=== PATIENT | male | born 1990 | race Caucasian/White ===

== ENCOUNTER 2016-12-16 01:18 | Emergency (ER) | payer SELFPAY ==
[2016-12-16] MEDS ORDERED: Adacel (T-DAP) 0.5 ML VIAL ONE (01:23)
[2016-12-16 01:42] LABS: #Basophils 0.1 thou/uL (0.0-0.2); #Eosinphils 0.1 thou/uL (0.0-0.7); #Lymphocytes 2.7 thou/uL (1.20-3.40); #Monocytes 0.5 thou/uL (0.11-0.59); #Neutrophils 4.3 thou/uL (1.40-6.50); %Basophils 1.1 % (0.0-1.0); %Lymphocytes 35.1 % (21.0-51.0); %Monocytes 6.4 % (0.0-10.0); %Neutrophils 56.4 % (42.0-75.0); Hemoglobin 14.7 g/dL (14.0-18.0); Mean Corpuscular HGB CONC 35.4 g/dL (32.0-36.0); Mean Corpuscular Hemoglobin 31.3 pg (27.0-31.0); Mean Corpuscular Volume 88.3 fl (80.0-94.0); Mean Platelet Volume 8.5 fL (7.4-10.4); Platelet Count 164 thou/uL (130-400); RBC Distribution Width 11.6 % (11.5-14.5); Red Blood Cell (RBC) Count 4.71 mill/uL (4.70-6.10); White Blood Cell (WBC) Count 7.7 thou/uL (4.8-10.8)
[2016-12-16 01:57] LABS: ALT (SGPT) 29 U/L (8-55); AST (SGOT) 31 U/L (5-34); Albumin 4.6 g/dL (3.5-5.0); Alkaline Phosphatase 58 U/L (40-150); Anion Gap 18 mmol/L (10-20); BUN (Urea Nitrogen) 10 mg/dL (8.9-20.6); Bilirubin, Total 0.8 mg/dL (0.2-1.2); Calc. Creatinine Clearance 0 mL/min (70-130); Calcium 9.1 mg/dL (7.8-10.44); Carbon Dioxide 20 mmol/L (22-29); Chloride 109 mmol/L (98-107); Estimated GFR-MDRD 90; Glucose 106 mg/dL (70-105); Potassium 3.6 mmol/L (3.5-5.1); Protein, Total 7.6 g/dL (6.0-8.3); Sodium 143 mmol/L (136-145)
--- NOTE | 2016-12-16 07:46 | RAD ---
LEFT HUMERUS 2 VIEWS: DATE: 12/16/16. Two views show no fracture or opaque foreign body. IMPRESSION: No acute findings POS: HOME
--- NOTE | 2016-12-16 07:47 | RAD ---
CHEST 2 VIEWS: DATE: 12/16/16. FINDINGS: The heart is normal in size. The mediastinum shows no widening or shift. There is some slight curv ature to the thoracolumbar spine convex right. The lungs are clear and fully inflated. There is no sign of pneumothorax, effusion, or focal pulmonary infiltrate. No opaque foreign bodies were seen. The lungs may be marginally hyperexpanded. IMPRESSION: No acute thoracic finding. POS: HOME
== END 2016-12-16 02:51 | disposition home or self-care (01) ==
LOC: BURERS 01:18
DX: S61.412A Laceration without foreign body of left hand, initial encounter (principal); F17.210 Nicotine dependence, cigarettes, uncomplicated; W34.00XA Accidental discharge from unspecified firearms or gun, initial encounter
CPT/HCPCS: 12001; 71020; 80053; 85025; 86850; 86900; 86901; 90471; 90715; 96360; G0390